=== PATIENT | female | born 1995 | race Caucasian/White ===

== ENCOUNTER 2021-05-20 19:01 | Emergency (ER) | payer OTHER ==
[2021-05-20] MEDS ORDERED: Ondansetron ODT 4 MG TAB ONE (19:18)
[2021-05-20] MEDS ORDERED: Sodium Chloride 0.9% 1,000 ML ONE (19:37)
[2021-05-20] MEDS ORDERED: Ketorolac Tromethamine 30 MG/ML VIAL ONE (19:37)
[2021-05-20] MEDS ORDERED: Prochlorperazine 10 MG/2 ML VIAL ONE (19:37)
[2021-05-20] MEDS ORDERED: diphenhydrAMINE 50 MG/ML VIAL ONE (19:37)
== END 2021-05-20 20:09 | disposition home or self-care (01) ==
LOC: NAV ERS 19:01
DX: G43.909 Migraine, unspecified, not intractable, without status migrainosus (principal); Z20.822 Contact with and (suspected) exposure to COVID-19
CPT/HCPCS: 96365; 96375; J0780; J1200; J1885; J7050; Q0162

== ENCOUNTER 2021-10-05 11:57 | Emergency (ER) | payer OTHER ==
[2021-10-06 16:41] LABS: SARS-CoV-2 PCR by NAA DETECTED (NotDetected)
== END 2021-10-05 12:40 | disposition home or self-care (01) ==
LOC: NAV ERS 11:57
DX: U07.1 COVID-19 (principal)
CPT/HCPCS: 99283; U0003; U0005